=== PATIENT | female | born 1980 | race African-American/Black ===

== ENCOUNTER 2024-06-29 23:56 | Inpatient (IN) | payer OTHER ==
[~2024-06-29] VITALS: Ht 162.6 cm; Wt 85.7 kg
[2024-06-30 00:53] LABS: HEMATOCRIT 39.8 % (36.0-47.0); HEMOGLOBIN 12.4 g/dl (12.0-15.5); MEAN CORPUSCULAR HEMOGLOBIN 24.9 pg (27.0-33.0); MEAN CORPUSCULAR HGB CONC 31.2 g/dl (32.0-36.5); MEAN CORPUSCULAR VOLUME 79.9 fl (80.0-96.0); PLATELET COUNT, AUTOMATED 265 10^3/uL (150-450); RED BLOOD COUNT 4.98 10^6/uL (4.00-5.40); WHITE BLOOD COUNT 7.1 10^3/uL (4.0-10.0)
[2024-06-30 01:12] LABS: AMPHETAMINES LEVEL URINE NEGATIVE (NEGATIVE); BARBITURATES URINE NEGATIVE (NEGATIVE)
[2024-06-30 01:13] LABS: BENZODIAZEPINES URINE NEGATIVE (NEGATIVE); CANNABINOIDS URINE NEGATIVE (NEGATIVE); COCAINE METABOLITE URINE NEGATIVE (NEGATIVE); METHADONE URINE NEGATIVE (NEGATIVE); OPIATES URINE NEGATIVE (NEGATIVE); PHENCYCLIDINE URINE NEGATIVE (NEGATIVE)
[2024-06-30 01:15] LABS: ETHYL ALCOHOL (ETHANOL) 0.003 % (0.000-0.010)
[2024-06-30 01:16] LABS: ALBUMIN 3.7 G/DL (3.2-5.2); ALKALINE PHOSPHATASE 113 U/L (35-104); ALT/SGPT 17 U/L (7.0-40); AST/SGOT 17 U/L (<34); BILIRUBIN,DIRECT < 0.1 MG/DL (<0.4); BILIRUBIN,TOTAL 0.2 MG/DL (0.3-1.2); BLOOD UREA NITROGEN 12 MG/DL (9-23); CALCIUM LEVEL 10.6 MG/DL (8.5-10.1); CARBON DIOXIDE LEVEL 29 MMOL/L (20-31); CHLORIDE LEVEL 105 MMOL/L (98-107); CREATININE FOR GFR 0.82 MG/DL (0.55-1.30); GLOMERULAR FILTRATION RATE > 60.0 (>58); GLUCOSE, FASTING 99 MG/DL (60-100); POTASSIUM SERUM 3.8 MMOL/L (3.5-5.1); SALICYLATE LEVEL < 3.0 MG/DL (<30); SODIUM LEVEL 139 MMOL/L (136-145); TOTAL PROTEIN 7.4 G/DL (5.7-8.2)
[2024-06-30 01:19] LABS: THYROID STIMULATING HORMONE 4.869 uIU/ML (0.55-4.78)
[2024-06-30] MEDS ORDERED: ACETAMINOPHEN 325 MG TAB PO PRN (06:00)
[2024-06-30] MEDS ORDERED: MOM 30ML SUSPENSION UDC PO PRN (06:00)
[2024-06-30] MEDS ORDERED: diphenhydrAMINE 25MG CAP PO PRN (06:00)
[2024-06-30] MEDS ORDERED: MAALOX 30 ML SUSP *UDC PO PRN (06:00)
[2024-06-30] MEDS ORDERED: IBUPROFEN 400MG TAB PO PRN (06:00)
[2024-06-30 06:48] VITALS: BP 104/62; TEMP 97.8; O2SAT 99
[2024-06-30] MEDS ORDERED: NITR100C2 PO (07:57)
[2024-06-30] MEDS ORDERED: PRENTAB53 PO (07:57)
[2024-06-30] MEDS ORDERED: NORE5TAB PO (07:57)
[2024-06-30] MEDS ORDERED: METR-265 PO (07:57)
[2024-06-30] MEDS ORDERED: DOXY100T PO (07:57)
[2024-06-30] MEDS ORDERED: ZOLP12.535 PO (07:57)
[2024-06-30] MEDS ORDERED: HOME MED LIST COMPLETE! XX SCH (08:00)
[2024-06-30 15:46] VITALS: BP 111/67; TEMP 97.8; O2SAT 100
[2024-06-30] MEDS: metroNIDAZOLE (FLAGYL) 500MG TABLET PO SCH (16:51)
[2024-06-30] MEDS: NITROFURANTOIN (MACROBID) 100 MG CAP PO SCH (16:52)
[2024-06-30] MEDS: FLUCONAZOLE 50MG TABLET PO ONE (16:56)
[2024-06-30] MEDS: traZODone 50 MG TAB PO PRN (22:12)
[2024-07-01 06:25] VITALS: BP 118/75; TEMP 97.5; O2SAT 95
[2024-07-01] MEDS ORDERED: NORETHINDRONE 5 MG XX SCH (09:00)
[2024-07-01 14:47] VITALS: BP 119/85; TEMP 97.4; O2SAT 99
[2024-07-02 06:33] VITALS: BP 86/55; TEMP 97.7; O2SAT 99
[2024-07-02] MEDS ORDERED: TRAZ-252 PO (12:00)
== END 2024-07-02 12:17 | disposition home or self-care (01) | DRG 881 ==
LOC: M ED 23:56 → M ED INP 06-30 05:56 → M PSY 06-30 06:42
PROVIDERS: ADMIT Psychiatry & Neurology Psychiatry; ATTEND Psychiatry & Neurology Psychiatry
DX: F32.A Depression, unspecified (principal); R45.851 Suicidal ideations; N39.0 Urinary tract infection, site not specified; G47.00 Insomnia, unspecified; E83.52 Hypercalcemia; D25.9 Leiomyoma of uterus, unspecified; D50.9 Iron deficiency anemia, unspecified; Z79.2 Long term (current) use of antibiotics; Z79.899 Other long term (current) drug therapy